=== PATIENT | male | born 1985 | race Two or more races ===

== ENCOUNTER 2023-11-23 19:57 | Inpatient (IN) | payer MEDICAID, OTHER ==
[~2023-11-23] VITALS: Ht 182.9 cm; Wt 86.2 kg
[2023-11-23] MEDS ORDERED: ONDANSETRON HCL/PF 4 MG/2 ML VIAL ONE (20:11)
[2023-11-23] MEDS ORDERED: LORAZEPAM INJ 2 MG/ML VIAL ONE ×3 (20:12→22:14)
[2023-11-23] MEDS: LORAZEPAM INJ 2 MG/ML VIAL IVP ONE (20:41)
[2023-11-23] MEDS: ONDANSETRON HCL/PF 4 MG/2 ML VIAL IVP ONE (20:41)
[2023-11-23] MEDS: IV NS 0.9% 1,000 ML BAG IV ONE ×2 (20:41→22:44)
[2023-11-23 20:45] LABS: BASOPHILS % (AUTO) 0.2 % (0.0-2.0); HEMATOCRIT 43 % (39-51); HEMOGLOBIN 14.9 g/dL (13.5-17.5); LYMPHOCYTES # (AUTO) 0.4 K/uL (0.8-4.8); LYMPHOCYTES % (AUTO) 4.3 % (20.0-44.0); MEAN CORPUSCULAR HEMOGLOBIN 32 PG (26.0-33.0); MEAN CORPUSCULAR HGB CONC 35 g/dl (31.0-36.0); MEAN CORPUSCULAR VOLUME 93 fL (80-96); MONOCYTES # (AUTO) 0.3 K/uL (0.1-1.30); MONOCYTES % (AUTO) 2.7 % (2.0-12.0); NEUTROPHILS % (AUTO) 92.8 % (43.0-81.0); PLATELET COUNT (AUTO) 55 K/uL (150-450); RED BLOOD CELL COUNT(AUTO) 4.64 MIL/uL (4.5-6.0); WHITE BLOOD COUNT (AUTO) 9.7 K/uL (4.3-11.0)
[2023-11-23] MEDS: LORAZEPAM INJ 2 MG/ML VIAL IV ONE ×3 (20:50→23:52)
[2023-11-23] MEDS ORDERED: Thiamine 100 MG/ML VIAL ONE (20:59)
[2023-11-23] MEDS: Thiamine 100 MG in IV D5W 50 ML IV SCH (21:05)
[2023-11-23 21:08] LABS: BAND % (MANUAL) 1 % (0.0-5.0); LYMPHOCYTES % (MANUAL) 2 % (16-48); MONOCYTES % (MANUAL) 1 % (0-11.0); NEUTROPHILS % (MANUAL) 95 (42-76)
[2023-11-23 21:09] LABS: MYELOCYTES % 1 % (0-0); PLATELET ESTIMATE DECREASED
[2023-11-23 21:11] LABS: ALANINE AMINOTRANSFERASE 493 U/L (12-78); ALBUMIN 4.5 g/dL (3.4-5.0); ALCOHOL, BLOOD 47 mg/dL (0-10); ALKALINE PHOSPHATASE 186 U/L (46-116); ASPARTATE AMINOTRANSFERASE 526 U/L (15-37); BILIRUBIN,DIRECT 0.5 mg/dL (0.0-0.2); BILIRUBIN,TOTAL 1.3 mg/dL (0.2-1.0); CALCIUM, SERUM 10.2 mg/dL (8.5-10.1); CARBON DIOXIDE 20 mmol/L (21-32); CHLORIDE 81 mmol/L (98-107); CREATININE 0.6 mg/dL (0.6-1.3); GLUCOSE 153 mg/dL (74-106); SODIUM SERUM 133 mmol/L (136-145); TOTAL PROTEIN, SERUM 8.8 g/dL (6.4-8.2); UREA NITROGEN, BLOOD 6 mg/dL (7-18)
[2023-11-23 21:13] LABS: ACETAMINOPHEN <10 ug/ml (10-30); POTASSIUM 2.8 mmol/L (3.5-5.1); SALICYLATE 0.3 mg/dL (2.8-20.0)
[2023-11-23] MEDS: POTASSIUM CL. PREMIX PERIPHER. 50 ML IV SCH (21:25)
[2023-11-23] MEDS: POTASSIUM CHLORIDE 20 MEQ TAB.PRT.SR PO ONE (21:30)
[2023-11-23] MEDS ORDERED: FAMOTIDINE/PF INJ 20 MG/2 ML VIAL IV ONE (22:14)
[2023-11-23] MEDS: FAMOTIDINE/PF INJ 20 MG/2 ML VIAL IV ONE (22:25)
[2023-11-24] VITALS (7 sets, daily range): BP systolic 104–133; BP diastolic 46–95; TEMP 97.9–99.1; O2SAT 96–100
[2023-11-24] MEDS ORDERED: MAG HYDROX/AL HYDROX/SIMETH 30 ML UDC PO PRN (00:30)
[2023-11-24] MEDS ORDERED: ZOLPIDEM TARTRATE 5 MG TABLET PO PRN (00:30)
[2023-11-24] MEDS ORDERED: MAGNESIUM HYDROXIDE 30 ML UDC PO PRN (00:30)
[2023-11-24] MEDS: LORAZEPAM 1 MG TABLET PO SCH (02:18)
[2023-11-24] MEDS: CHLORDIAZEPOXIDE HCL 25 MG CAPSULE PO SCH (02:18)
[2023-11-24] MEDS: Magnesium 1GM/D5W 100ML PREMIX 100 ML IV SCH (02:19)
[2023-11-24] MEDS: ENOXAPARIN SODIUM 40 MG/0.4 ML DISP.SYRIN SQ SCH (02:22)
[2023-11-24] MEDS: IV NS 0.9% 1,000 ML IV PRN (03:59)
[2023-11-24] MEDS: ONDANSETRON HCL/PF 4 MG/2 ML VIAL IVP PRN (04:27)
[2023-11-24] MEDS: Magnesium 1GM/D5W 100ML PREMIX 100 ML IV ONE (04:50)
[2023-11-24] MEDS ORDERED: FERR325T23 PO (07:36)
[2023-11-24] MEDS ORDERED: CREA100P6 PO (07:36)
[2023-11-24] MEDS ORDERED: POTA8TAB3 PO (07:36)
[2023-11-24] MEDS ORDERED: CLON2TAB11 PO (07:36)
[2023-11-24] MEDS ORDERED: GABA300C PO (07:36)
[2023-11-24] MEDS ORDERED: THIA100T88 PO (07:36)
[2023-11-24] MEDS: MULTIVITAMINS,THERAGRAN 1 UDTAB TABLET PO SCH (08:21)
[2023-11-24] MEDS: PANTOPRAZOLE 40 MG VIAL IV SCH (08:21)
[2023-11-24] MEDS: FOLIC ACID 1 MG TABLET PO SCH (08:21)
[2023-11-24] MEDS: THIAMINE HCL 100 MG TABLET PO SCH (08:21)
[2023-11-24 09:46] LABS: EOSINOPHILS % (AUTO) 0.5 % (0.0-6.0); HEMOGLOBIN 12.6 g/dL (13.5-17.5); LYMPHOCYTES % (AUTO) 17.1 % (20.0-44.0)
[2023-11-24 09:52] LABS: BASOPHILS % (AUTO) 0.6 % (0.0-2.0); HEMATOCRIT 37 % (39-51); LYMPHOCYTES # (AUTO) 1.1 K/uL (0.8-4.8); MEAN CORPUSCULAR HEMOGLOBIN 32 PG (26.0-33.0); MEAN CORPUSCULAR HGB CONC 34 g/dl (31.0-36.0); MEAN CORPUSCULAR VOLUME 92 fL (80-96); MONOCYTES # (AUTO) 0.2 K/uL (0.1-1.30); MONOCYTES % (AUTO) 3.5 % (2.0-12.0); NEUTROPHILS # (AUTO) 5.2 K/uL (1.8-8.9); NEUTROPHILS % (AUTO) 78.3 % (43.0-81.0); RED BLOOD CELL COUNT(AUTO) 3.99 MIL/uL (4.5-6.0); RED CELL DISTRIBUTION WIDTH 14.6 % (11.5-15.0); WHITE BLOOD COUNT (AUTO) 6.6 K/uL (4.3-11.0)
[2023-11-24 10:22] LABS: PLATELET COUNT (AUTO) 33 K/uL (150-450)
[2023-11-24 10:32] LABS: ALANINE AMINOTRANSFERASE 336 U/L (12-78); ALBUMIN 3.3 g/dL (3.4-5.0); ALKALINE PHOSPHATASE 153 U/L (46-116); AMYLASE 115 U/L (25-115); ASPARTATE AMINOTRANSFERASE 364 U/L (15-37); BILIRUBIN,DIRECT 0.7 mg/dL (0.0-0.2); CALCIUM, SERUM 9.1 mg/dL (8.5-10.1); CARBON DIOXIDE 29 mmol/L (21-32); CHLORIDE 90 mmol/L (98-107); CREATININE 0.4 mg/dL (0.6-1.3); GLUCOSE 93 mg/dL (74-106); MAGNESIUM 1.9 mg/dL (1.8-2.4); PHOSPHORUS 1.6 mg/dL (2.5-4.9); POTASSIUM 2.9 mmol/L (3.5-5.1); SODIUM SERUM 127 mmol/L (136-145); TOTAL PROTEIN, SERUM 6.9 g/dL (6.4-8.2); UREA NITROGEN, BLOOD 1 mg/dL (7-18)
[2023-11-24 10:39] LABS: LIPASE > 375 U/L (16-77)
[2023-11-24 11:17] LABS: LYMPHOCYTES % (MANUAL) 17 % (16-48); MONOCYTES % (MANUAL) 3 % (0-11.0); NEUTROPHILS % (MANUAL) 80 (42-76)
[2023-11-24 11:19] LABS: ANISOCYTOSIS 1+; PLATELET ESTIMATE DECREASED
[2023-11-24] MEDS ORDERED: POTASSIUM PHOSPHATE MM 15 MMOL in IV NS 0.9% 250 ML IV SCH (11:30)
[2023-11-24] MEDS: POTASSIUM PHOSPHATE MM 7.5 MMOL in IV NS 0.9% 100 ML IV SCH (11:38)
[2023-11-24] MEDS: POTASSIUM CHLORIDE 20 MEQ TAB.PRT.SR PO SCH (11:40)
[2023-11-24] MEDS: GABAPENTIN 300 MG CAPSULE PO SCH (12:07)
[2023-11-24] MEDS ORDERED: CT SWABBABLE VALVE TRANS SET 1 EA INFUS.SET MC ONE (12:21)
[2023-11-24] MEDS ORDERED: IOHEXOL-300 100 ML VIAL IV ONE (12:21)
[2023-11-24] MEDS ORDERED: IV NS 0.9% 250 ML IV ONE (12:21)
[2023-11-24] MEDS: ACETAMINOPHEN 325 MG TABLET PO PRN (22:12)
[2023-11-25] VITALS (16 sets, daily range): BP systolic 98–127; BP diastolic 73–102; TEMP 97.7–99.3; O2SAT 97–100
[2023-11-25] MEDS: Z GUARD REMEDY 4 OZ OINT TP PRN (00:39)
[2023-11-25] MEDS: PANTOPRAZOLE 40 MG TABLET.DR PO SCH (08:22)
[2023-11-25] MEDS: MINERAL OIL/PETROL OINT 396 GM JAR TP SCH (09:00)
[2023-11-25] MEDS: POTASSIUM CHLORIDE 20 MEQ TAB.PRT.SR PO ONE (09:46)
[2023-11-25 11:40] LABS: BASOPHILS % (AUTO) 0.3 % (0.0-2.0); EOSINOPHILS # (AUTO) 0.1 K/uL (0.0-0.7); EOSINOPHILS % (AUTO) 1.6 % (0.0-6.0); HEMATOCRIT 37 % (39-51); HEMOGLOBIN 12.7 g/dL (13.5-17.5); LYMPHOCYTES % (AUTO) 19.1 % (20.0-44.0); MEAN CORPUSCULAR HEMOGLOBIN 31 PG (26.0-33.0); MEAN CORPUSCULAR HGB CONC 34 g/dl (31.0-36.0); MEAN CORPUSCULAR VOLUME 92 fL (80-96); MONOCYTES # (AUTO) 0.2 K/uL (0.1-1.30); MONOCYTES % (AUTO) 4.1 % (2.0-12.0); NEUTROPHILS # (AUTO) 3.7 K/uL (1.8-8.9); NEUTROPHILS % (AUTO) 74.9 % (43.0-81.0); PLATELET COUNT (AUTO) 52 K/uL (150-450); RED BLOOD CELL COUNT(AUTO) 4.07 MIL/uL (4.5-6.0); RED CELL DISTRIBUTION WIDTH 14.6 % (11.5-15.0)
[2023-11-25 11:46] LABS: ALANINE AMINOTRANSFERASE 414 U/L (12-78); ALBUMIN 3.3 g/dL (3.4-5.0); ALKALINE PHOSPHATASE 164 U/L (46-116); ASPARTATE AMINOTRANSFERASE 529 U/L (15-37); BILIRUBIN,TOTAL 1.4 mg/dL (0.2-1.0); CALCIUM, SERUM 9.4 mg/dL (8.5-10.1); CARBON DIOXIDE 26 mmol/L (21-32); CHLORIDE 93 mmol/L (98-107); CREATININE 0.6 mg/dL (0.6-1.3); GLUCOSE 87 mg/dL (74-106); MAGNESIUM 1.7 mg/dL (1.8-2.4); PHOSPHORUS 1.4 mg/dL (2.5-4.9); SODIUM SERUM 130 mmol/L (136-145); TOTAL PROTEIN, SERUM 7.2 g/dL (6.4-8.2); UREA NITROGEN, BLOOD 3 mg/dL (7-18)
[2023-11-25 11:47] LABS: CHOLESTEROL 285 mg/dL (<200); HDL CHOLESTEROL 129 mg/dL (40-60); LDL 79 mg/dL (0-99); TRIGLYCERIDES 86 mg/dL (30-150)
[2023-11-25] MEDS ORDERED: LORAZEPAM 1 MG TABLET PO PRN (12:00)
[2023-11-25 12:04] LABS: LIPASE > 375 U/L (16-77)
[2023-11-25 12:33] LABS: ANISOCYTOSIS 1+; BAND % (MANUAL) 2 % (0.0-5.0); LYMPHOCYTES % (MANUAL) 15 % (16-48); MONOCYTES % (MANUAL) 5 % (0-11.0); NEUTROPHILS % (MANUAL) 78 (42-76); PLATELET ESTIMATE DECREASED
[2023-11-25] MEDS: MORPHINE SULFATE INJ 4 MG/ML DISP.SYRIN IV PRN (12:38)
[2023-11-25] MEDS: CHLORDIAZEPOXIDE HCL 25 MG CAPSULE PO SCH (14:13)
[2023-11-25] MEDS: POTASSIUM PHOSPHATE MM 7.5 MMOL in IV NS 0.9% 100 ML IV SCH (16:24)
[2023-11-25] MEDS: K PHOS NEUTRAL 250 MG TABLET PO ONE (16:29)
== END 2023-11-25 19:35 | disposition left against medical advice (07) | DRG 282 ==
LOC: ER 20:06 → TELE 11-24 00:17
PROVIDERS: ADMIT Nurse Practitioner Family; ATTEND Nurse Practitioner Family
PROC: 30233R1 Transfusion of Nonautologous Platelets into Peripheral Vein, Percutaneous Approach (ICD-10-PCS; principal; 2023-11-25)
DX: K85.20 Alcohol induced acute pancreatitis without necrosis or infection (principal); D69.6 Thrombocytopenia, unspecified; E87.20 Acidosis, unspecified; S32.591A Other specified fracture of right pubis, initial encounter for closed fracture; E86.0 Dehydration; E87.1 Hypo-osmolality and hyponatremia; D64.9 Anemia, unspecified; F10.139 Alcohol abuse with withdrawal, unspecified; E87.6 Hypokalemia; Y90.2 Blood alcohol level of 40-59 mg/100 ml; E83.42 Hypomagnesemia; K86.1 Other chronic pancreatitis; F41.9 Anxiety disorder, unspecified; M89.8X9 Other specified disorders of bone, unspecified site; R56.9 Unspecified convulsions; R73.9 Hyperglycemia, unspecified; K76.0 Fatty (change of) liver, not elsewhere classified; W17.89XA Other fall from one level to another, initial encounter; Y93.9 Activity, unspecified; Y92.009 Unspecified place in unspecified non-institutional (private) residence as the place of occurrence of the external cause; K74.60 Unspecified cirrhosis of liver; K86.0 Alcohol-induced chronic pancreatitis
CPT/HCPCS: 36415; 71045-TC; 76700-TC; 80048-TC; 80053-TC; 80061-TC; 80076-TC; 82150-TC; 82607-TC; 83690-TC; 83735-TC; 84100-TC; 84443-TC; 85025-TC; 86850-TC; 98960; A4223; A6403; G0378; G0480; J1650; J2060; J2270; J2405; J3411; J3475; J3480; J3490; J7030; J7040; J7050; J7060; P9034; Q9967